=== PATIENT | male | born 1965 | race Caucasian/White ===

== ENCOUNTER 2022-07-01 11:50 | Inpatient (IN) | payer BC ==
[~2022-07-01] VITALS: Ht 172.7 cm; Wt 76.7 kg
[2022-07-01 11:52] VITALS: BP 155/116
[2022-07-01] MEDS ORDERED: MORPHINE SULFATE 4 MG/ML SYR IVP ONE (12:15)
[2022-07-01] MEDS ORDERED: ONDANSETRON 4 MG/2 ML VIAL IVP ONE (12:15)
[2022-07-01] MEDS ORDERED: NACL 0.9% 1,000 ML IV ONE (12:15)
--- NOTE | 2022-07-01 12:25 | NUR ---
BIBA BLS TO ER BED 9
--- NOTE | 2022-07-01 12:28 | NUR ---
Pt taken to CT at this time
--- NOTE | 2022-07-01 12:37 | NUR ---
First contact with pt is while he is being wheeled to CT. MD giving order to pull meds and medicate pt now. Medication administered as ordered. Pt tolerating well.
[2022-07-01] MEDS ORDERED: DICYCLOMINE HCL LIQUID 20 MG, ALUMINUM HYD/MAG/SIMETHICONE 30 ML, LIDOCAINE VISCOUS 2% ... PO ONE ×3 (13:05)
[2022-07-01] MEDS ORDERED: FAMOTIDINE 20 MG/2 ML VIAL IVP ONE (13:05)
--- NOTE | 2022-07-01 13:05 | NUR ---
Pt bib bls for sudden onset of abd pain that started 2 hours prior to coming to ED. Pt denies trauma. Pts only stated hx is kidney stones. Pt is a/o x 4, pt shows some relief from pain with medication but still complains of pain. MD went to bedside to reassess pt's pain level. Pt is resting in bed now. On monitor. Vss. Rails up.
[2022-07-01] MEDS ORDERED: ALUMINUM HYD/MAG/SIMETHICONE 30 ML UDC ONE (13:17)
[2022-07-01] MEDS ORDERED: DICYCLOMINE HCL LIQUID 10 MG/5 ML UDC ONE (13:17)
[2022-07-01] MEDS ORDERED: KETOROLAC 15 MG/ML VIAL IVP ONE (13:30)
[2022-07-01 13:37] LABS: ALBUMIN 4.1 g/dL (3.4-5.0); ANION GAP 19.8 (8-16); ASPARTATE AMINOTRANSFERASE 20 U/L (15-37); CARBON DIOXIDE 18.1 mmol/L (21-32); CHLORIDE 102 mmol/L (98-107); CREATININE 1.2 mg/dL (0.6-1.3); GFR ARICAN-AMERICAN 81 mL/min (>90); GLUCOSE 122 mg/dL (74-106); LIPASE 102 U/L (73-393); SODIUM SERUM 137 mmol/L (136-145); TOTAL BILIRUBIN 1.2 mg/dL (0.0-1.0); UREA NITROGEN, BLOOD 14 mg/dL (7-18)
[2022-07-01 13:40] LABS: POTASSIUM 2.9 mmol/L (3.5-5.1)
[2022-07-01 13:44] LABS: BASOPHILS # (AUTO) 0.1 K/uL (0.00-0.22); BASOPHILS % (AUTO) 0.7 % (0.0-2.0); EOSINOPHILS # (AUTO) 0.1 K/uL (0-0.4); EOSINOPHILS % (AUTO) 1.7 % (0.0-4.0); HEMATOCRIT 46.1 % (36-52); HEMOGLOBIN 16.1 g/dL (12.0-18.0); LYMPHOCYTES # (AUTO) 1.6 K/uL (2.0-11.5); LYMPHOCYTES % (AUTO) 21.9 % (20.5-51.1); MEAN CORPUSCULAR HEMOGLOBIN 31 pg (27-31); MEAN CORPUSCULAR HGB CONC 35 g/dL (33-37); MONOCYTES # (AUTO) 0.4 K/uL (0.8-1.0); MONOCYTES % (AUTO) 5.2 % (1.7-9.3); NEUTROPHILS # (AUTO) 5.2 K/uL (1.8-7.7); NEUTROPHILS % (AUTO) 70.5 % (42.2-75.2); PLATELET COUNT (AUTO) 192 K/uL (140-450); RED BLOOD CELL COUNT(AUTO) 5.24 MIL/uL (4.20-6.10); RED CELL DISTRIBUTION WIDTH 12.2 % (11.6-13.7); WHITE BLOOD COUNT (AUTO) 7.4 K/uL (4.8-10.8)
[2022-07-01] MEDS ORDERED: POTASSIUM CHLORIDE 10 MEQ TABER PO ONE (13:45)
--- NOTE | 2022-07-01 13:45 | NUR ---
I spoke with pts outside about pt status and plan of care. 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 Two of patients coworkers updated with , as okay'd by patient.
[2022-07-01] MEDS ORDERED: ONDANSETRON 4 MG/2 ML VIAL IM/IVP PRN (14:05)
[2022-07-01] MEDS ORDERED: guaiFENesin DM 200/20 MG-10 ML 10 ML UDC PO PRN (14:05)
[2022-07-01] MEDS ORDERED: ACETAMINOPHEN 325 MG TAB PO PRN (14:05)
[2022-07-01] MEDS ORDERED: DOCUSATE SODIUM 100 MG GELCAP PO PRN (14:05)
[2022-07-01] MEDS ORDERED: MORPHINE SULFATE 2 MG/ML SYR IVP PRN (14:05)
[2022-07-01] MEDS ORDERED: POTASSIUM CHLORIDE 10 MEQ TABER PO PRN (14:05)
[2022-07-01] MEDS ORDERED: ZOLPIDEM 5 MG TAB PO PRN (14:05)
[2022-07-01] MEDS ORDERED: NITROGLYCERIN 0.4 MG TAB SL PRN (14:10)
[2022-07-01] MEDS: HYDROcodone/APAP 7.5/325 MG 1 TAB PO PRN ×2 (14:15→20:43)
[2022-07-01 14:17] LABS: APPEARANCE,URINE CLEAR (CLEAR); BILIRUBIN,URINE NEGATIVE (NEGATIVE); BLOOD, URINE NEGATIVE (NEGATIVE); COLOR,URINE YELLOW (YELLOW); LEUKOCYTE ESTERASE ,URINE NEGATIVE (NEGATIVE); NITRITE, URINE NEGATIVE (NEGATIVE); UGLUCOSE NEGATIVE (NEGATIVE)
--- NOTE | 2022-07-01 14:30 | NUR ---
Pts updated again. No major changes in pt status. stating she "she needs to advocate for pt". Pt is a/o x 4, resting in bed with no major complaints and able to advocate for himself. Pt has no complaints at this time, other than pain.
[2022-07-01] MEDS ORDERED: POTASSIUM CHLORIDE 40 MEQ, LIDOCAINE 1% 25 MG in NACL 0.9% 250 ML IV SCH (15:00)
[2022-07-01] MEDS: NACL 0.9% 1,000 ML IV SCH (15:04)
[2022-07-01 15:45] LABS: PROTHROMBIN TIME 10.4 secs (10.8-13.4)
[2022-07-01 15:51] LABS: AMYLASE 31 U/L (25-115); CHOL/HDL RATIO 3.1 (1-4.5); FREE T4 (FREE THYROXINE) 1.02 ng/dL (0.76-1.46); HDL CHOLESTEROL 58 mg/dL (40-60); LDL (CALC) 103 mg/dL (60-100); MAGNESIUM 1.3 mg/dL (1.8-2.4); THYROID STIMULATING HORMONE 3.66 uIU/mL (0.34-3.74); TRIGLYCERIDES 81 mg/dL (30-150)
[2022-07-01] MEDS ORDERED: ATORVASTATIN 20 MG TAB PO SCH (17:00)
[2022-07-01 17:30] VITALS: BP 125/85
--- NOTE | 2022-07-01 17:30 | NUR ---
Bedside report given to VICK Elizabeth. Pt transported in stable condition without incident. Pt a/o x 4, vss, no ss of acute distress, breathing equal and unlabored, speech clear.
--- NOTE | 2022-07-01 17:45 | NUR ---
admit the patient from emergency room jennifer Cifuentes in rm [id number] with admitting diagnosis of chest pain , hypokalemia . aox4 . will continue to monitor
[2022-07-01] MEDS ORDERED: MAG SULF 2000 MG/WATER PREMIX 50 ML IV ONE (19:10)
--- NOTE | 2022-07-01 19:25 | NUR ---
RECEIVED REPORT FROM DAY SHIFT NURSE FELIPE. PATIENT IN BED WELL RESTED. ON ROOM AIR. NO S/S OF RESPIRATORY DISTRESS. RESPIRATION EVEN UNLABORED. IVF NS INFUSING 80 ML/HR. KCL 40 MEQ RUNNING 68 ML/HR. AND DAUGHTER AT BEDSIDE. SAFETY MEASURES ARE IN PLACE. CT ANGIO WITH CONTRAST CANCELLED BY DR. VAZQUEZ D/T IT WAS DONE EARLIER IN ER.
[2022-07-01 20:00] VITALS: BP 125/79
[2022-07-01] MEDS: METOPROLOL 25 MG TAB PO SCH (20:43)
--- NOTE | 2022-07-01 20:43 | NUR ---
ADMINISTERED SCHEDULED DUE MEDICATION.
[2022-07-02] VITALS: BP 112/71
[2022-07-02] MEDS ORDERED: MAG SULF 2000 MG/WATER PREMIX 50 ML IV ONE (00:13)
[2022-07-02 04:00] VITALS: BP 135/84
[2022-07-02] MEDS: HYDROcodone/APAP 7.5/325 MG 1 TAB PO PRN (04:42)
[2022-07-02 05:28] LABS: BASOPHILS % (AUTO) 0.4 % (0.0-2.0); EOSINOPHILS # (AUTO) 0.3 K/uL (0-0.4); EOSINOPHILS % (AUTO) 2.8 % (0.0-4.0); HEMATOCRIT 42.2 % (36-52); HEMOGLOBIN 14.6 g/dL (12.0-18.0); LYMPHOCYTES # (AUTO) 2.6 K/uL (2.0-11.5); LYMPHOCYTES % (AUTO) 27.4 % (20.5-51.1); MEAN CORPUSCULAR HEMOGLOBIN 31 pg (27-31); MEAN CORPUSCULAR HGB CONC 35 g/dL (33-37); MEAN CORPUSCULAR VOLUME 90.1 fL (80-94); MONOCYTES # (AUTO) 0.8 K/uL (0.8-1.0); MONOCYTES % (AUTO) 8.2 % (1.7-9.3); NEUTROPHILS # (AUTO) 5.9 K/uL (1.8-7.7); NEUTROPHILS % (AUTO) 61.2 % (42.2-75.2); PLATELET COUNT (AUTO) 196 K/uL (140-450); RED BLOOD CELL COUNT(AUTO) 4.68 MIL/uL (4.20-6.10); RED CELL DISTRIBUTION WIDTH 12.8 % (11.6-13.7); WHITE BLOOD COUNT (AUTO) 9.7 K/uL (4.8-10.8)
[2022-07-02 06:32] LABS: ANION GAP 9.1 (8-16); CARBON DIOXIDE 27.4 mmol/L (21-32); POTASSIUM 4.5 mmol/L (3.5-5.1)
[2022-07-02] MEDS: NACL 0.9% 1,000 ML IV SCH (06:45)
--- NOTE | 2022-07-02 07:00 | NUR ---
PATIENT VOMITED ONCE TO A GREENISH OUTPUT, MEDICATED WITH ZOFRAN IVP.
[2022-07-02 07:08] LABS: T4 (THYROXINE) 6.8 ug/dL (4.5-12.0)
--- NOTE | 2022-07-02 07:36 | NUR ---
ENDORSED TO AM SHIFT NURSE FOR CONTINUITY OF CARE.
--- NOTE | 2022-07-02 07:37 | NUR ---
RECEIVED REPORT FROM NIGHTSHIFT NURSE. PT A/O X4. ABLE TO MAKE NEEDS KNOWN. NO SOB OR RESPIRATORY DISTRESS. RR EVEN AND UNLABORED. ON RA. DENIES PAIN, DENIES NAUSEA. NEEDS ALL MET AT THIS TIME. ALL SAFETY MEASURES IN PLACE.
[2022-07-02 08:00] VITALS: BP 117/75
[2022-07-02] MEDS: METOPROLOL 25 MG TAB PO SCH (09:00)
[2022-07-02] MEDS ORDERED: ECOTRIN 81 MG TABEC PO SCH (09:00)
[2022-07-02] MEDS ORDERED: PANTOPRAZOLE 40 MG TABEC PO SCH (09:00)
[2022-07-02] MEDS ORDERED: lisinopriL 5 MG TAB PO SCH (09:00)
--- NOTE | 2022-07-02 09:18 | NUR ---
PATIENT HAS BEEN SCREENED AND CATEGORIZED LOW NUTRITION RISK. PATIENT WILL BE SEEN WITHIN 7 DAYS OF ADMISSION. 07/08/22 REVIEWED BY DAVID DIAZ RD
--- NOTE | 2022-07-02 11:00 | NUR ---
DR. CHOU ORDER TO CANCEL CT CHEST. ORDERS INPUTTED.
[2022-07-02 12:00] VITALS: BP 123/80
[2022-07-02 12:33] VITALS: BP 123/80
[2022-07-02] MEDS ORDERED: ASPI-1749 PO (13:14)
--- NOTE | 2022-07-02 14:00 | NUR ---
DISCHARGE INSTRUCTIONS GIVEN. PT VERBALIZED UNDERSTANDING. IV DISCONTINUED X2, CATHETER INTACT, NO ACTIVE BLEEDING ON BOTH SITES. PT AMBULATED OUT WITH WITH STEADY GAIT.
== END 2022-07-02 14:00 | disposition home or self-care (01) | DRG 311 ==
LOC: MED 11:50 → MTU 14:16
PROVIDERS: ADMIT Family Medicine; ATTEND Family Medicine
DX: I20.9 Angina pectoris, unspecified (principal); E83.42 Hypomagnesemia; E87.6 Hypokalemia; M54.9 Dorsalgia, unspecified; Z20.822 Contact with and (suspected) exposure to COVID-19; E78.5 Hyperlipidemia, unspecified; Z87.442 Personal history of urinary calculi
CPT/HCPCS: 36415; 71045; 71260; 80048; 80053; 81003; 82150; 83036; 83690; 83735; 83880; 84100; 84436; 84439; 84443; 84479; 84484; 85025; 85610; 85730; 93005; 96374; 96375; 99291; J1885; J2001; J2270; J2405; J3475; J3480; J3490; J7030; Q9967